=== PATIENT | male | born 1980 | race Caucasian/White ===

== ENCOUNTER 2017-01-29 08:35 | Emergency (ER) | payer SELFPAY ==
[~2017-01-29] VITALS: Ht 180.3 cm; Wt 101.5 kg
[2017-01-29 08:37] VITALS: Ht 180.3 cm; Wt 101.5 kg
--- NOTE | 2017-01-29 08:57 | ERA ---
ER Documentation Chief Complaint Date/Time DATE: 01/29/17 TIME: 08:55 Chief Complaint swollen tonsils , fever x 1 day HPI Patient is 36-year-old male presents complaining of a sore throat. Patient's had these symptoms before and has resolved with a penicillin shot. Patient claims to have had these symptoms roughly 5 times in the past 10 years with the last time being 2013. Patient describes this discomfort as a 4 out of 10. Patient describes a low-grade fever that has not been measured over the past 1- 2 days. Patient has been taking ibuprofen to control the symptoms with little relief. ROS All systems reviewed and are negative except as per history of present illness. Medications Home Meds Active Scripts Ibuprofen* (Motrin*) 600 Mg Tab, 600 MG PO Q6H Y for PAIN AND OR ELEVATED TEMP, #30 TAB Prov:MICHAEL LOCKE PA-C 01/29/17 Allergies Allergies: Coded Allergies: ibuprofen (Verified Allergy, Mild, upset stomach, 01/29/17) Physical Exam Vitals Vital Signs Date Time Temp Pulse Resp B/P Pulse Ox O2 Delivery O2 Flow Rate FiO2 01/29/17 08:37 100.6 118 18 139/80 99 Physical Exam Const: Well-appearing 36-year-old male Head: Atraumatic Eyes: Normal Conjunctiva ENT: Normal External Ears, Nose and Mouth. Erythematous oropharynx with to visualized exudates. Neck: Full range of motion..~ No meningismus. No cervical lymphadenopathy. Resp: Clear to auscultation bilaterally Cardio: Regular rate and rhythm, no murmurs Abd: Soft, non tender, non distended. Normal bowel sounds Skin: No petechiae or rashes Back: No midline or flank tenderness Ext: No cyanosis, or edema Neur: Awake and alert Psych: Normal Mood and Affect Results 24 hrs Current Medications Medications (Trade) Dose Ordered Sig/Sonam Route PRN Reason Start Time Stop Time Status Last Admin Dose Admin Penicillin G Benzathine (Bicillin La) 1,200,000 units ONCE ONCE IM 01/29/17 09:00 01/29/17 09:01 DC 01/29/17 09:14 Ibuprofen (Motrin) 600 mg ONCE ONCE PO 01/29/17 09:00 01/29/17 09:01 DC Procedures/MDM Patient presents with pharyngitis and a history of bacterial pharyngitis/ tonsillitis. Patient has taken a penicillin shot in the past with resolution of symptoms. Patient's exam was positive for oropharynx exudates and erythema. There is no cervical lymphadenopathy. At this time the patient is in no acute distress and has no trouble breathing with no swelling inside the mouth or history of swelling in the airway. I have no reason to suspect endangerment of the airway at this time. The Centor criteria score is 3 and with a chronic history we will go ahead and treat him with a penicillin G benzathine IM shot. Departure Condition: Fair Additional Instructions: Return to emergency department immediately if difficulty breathing arises. Follow-up with primary care provider in the next 1-3 days. MICHAEL LOCKE PA-C Jan 29, 2017 08:57
[2017-01-29] MEDS ORDERED: IBUP-1542 PO (08:58)
[2017-01-29] MEDS ORDERED: IBUPROFEN 600 MG TAB PO ONE (09:00)
[2017-01-29] MEDS ORDERED: PENICILLIN G BENZ 1.2 MIL UNIT SYG IM ONE (09:00)
== END 2017-01-29 09:23 | disposition home or self-care (01) ==
LOC: FTE 08:35
DX: J02.9 Acute pharyngitis, unspecified (principal); R50.9 Fever, unspecified
CPT/HCPCS: 96372; 99284; J0561